=== PATIENT | male | born 1955 | race Caucasian/White ===

== ENCOUNTER → 2017-11-14 | Outpatient (CLI) | payer OTHER ==
[~2017-11-14] MED LIST: ERGO500017 PO; METH25VI22 INJ; PRED20TA PO; TRAM50TA2 PO
== END | disposition home or self-care (01) ==
LOC: STAR 12:25
PROVIDERS: ATTEND Surgery
DX: Z01.818 Encounter for other preprocedural examination (principal)
CPT/HCPCS: 93005

== ENCOUNTER 2017-11-25 06:29 | Day surgery (SDC) | payer OTHER ==
[~2017-11-25] VITALS: Ht 176.5 cm; Wt 72.2 kg
[2017-11-25] MEDS ORDERED: BUPIVACAINE/PF-EPI 0.5% 1:200K ONE (06:30)
[2017-11-25] MEDS ORDERED: LACTATED RINGERS 1,000 ML IV SCH (07:08)
[2017-11-25] MEDS ORDERED: FOLI0.4T2 PO (07:32)
[2017-11-25] MEDS ORDERED: PROPOFOL 10 MG/ML, 20ML ONE (08:53)
[2017-11-25] MEDS ORDERED: ROCURONIUM 10MG/ML,5ML ONE (08:54)
[2017-11-25] MEDS ORDERED: EPHEDRINE 50 MG/ML, 1ML ONE ×2 (08:56)
[2017-11-25] MEDS ORDERED: MIDAZOLAM 1 MG/ML, 2ML ONE (08:57)
[2017-11-25] MEDS ORDERED: FENTANYL PF 250 MCG/5ML ONE (08:57)
[2017-11-25] MEDS ORDERED: CEFAZOLIN 1,000 MG ONE (09:14)
[2017-11-25] MEDS ORDERED: DEXAMETHASONE 4 MG/ML, 1ML ONE ×2 (09:16)
[2017-11-25] MEDS ORDERED: ONDANSETRON 2MG/ML, 2ML ONE (09:16)
[2017-11-25] MEDS ORDERED: OXYcodone 5 MG/5 ML ORAL.SOL UDC PO PRN (09:30)
[2017-11-25] MEDS ORDERED: HYDROcodone/APAP 7.5-325MG/15ML UDC PO PRN (09:30)
[2017-11-25] MEDS ORDERED: MEPERIDINE/PF 25MG/0.5ML IVPush PRN (09:30)
[2017-11-25] MEDS ORDERED: METOPROLOL 1 MG/ML, 5ML IV PRN (09:30)
[2017-11-25] MEDS ORDERED: LABETALOL 5MG/ML, 20ML IV PRN (09:30)
[2017-11-25] MEDS ORDERED: ALBUTEROL SULFATE 2.5 MG/3 ML NPPB PRN (09:30)
[2017-11-25] MEDS ORDERED: HYDROmorphone 1 MG/ML, 1ML IV PRN (09:30)
[2017-11-25] MEDS ORDERED: KETOROLAC 30 MG/1 ML IV PRN (09:30)
[2017-11-25] MEDS ORDERED: ONDANSETRON 2MG/ML, 2ML IV PRN (09:30)
[2017-11-25] MEDS ORDERED: EPHEDRINE 50 MG/ML, 1ML IVPush PRN (09:30)
[2017-11-25] MEDS ORDERED: NEOSTIGMINE 1 MG/ML, 10ML ONE (09:38)
[2017-11-25] MEDS ORDERED: GLYCOPYRROLATE 0.2MG/1ML, 5ML ONE (09:38)
[2017-11-25] MEDS ORDERED: FENTANYL PF 100 MCG/2ML ONE ×2 (10:09→10:29)
[2017-11-25] MEDS ORDERED: OXYcodone 5 MG/5 ML ORAL.SOL UDC ONE (10:09)
[2017-11-25] MEDS: FENTANYL PF 100 MCG/2ML IV PRN ×4 (10:11→10:45)
== END 2017-11-25 12:40 | disposition home or self-care (01) ==
LOC: OUT 06:29
PROVIDERS: ATTEND Surgery
DX: K40.91 Unilateral inguinal hernia, without obstruction or gangrene, recurrent (principal); F10.21 Alcohol dependence, in remission; F17.210 Nicotine dependence, cigarettes, uncomplicated; Z87.39 Personal history of other diseases of the musculoskeletal system and connective tissue; Z87.891 Personal history of nicotine dependence; Z98.890 Other specified postprocedural states; Z88.8 Allergy status to other drugs, medicaments and biological substances
CPT/HCPCS: 49651; C1727; C1781; J0690; J1100; J2250; J2405; J2704; J2710; J3010; J3490